=== PATIENT | male | born 1980 | race Caucasian/White ===

== ENCOUNTER 2016-08-05 10:26 | Outpatient (CLI) | payer OTHER ==
[2015-11-08 01:29] VITALS: BP 149/86
== END 2016-08-05 10:45 ==
LOC: OUT 10:26
PROVIDERS: ATTEND Colon & Rectal Surgery
DX: K60.2 Anal fissure, unspecified (principal)
CPT/HCPCS: 99213

== ENCOUNTER 2016-09-06 13:56 | Outpatient (CLI) | payer OTHER ==
[2015-11-08 01:29] VITALS: BP 149/86
--- NOTE | 2016-09-06 15:33 | Diagnostic Imaging Report ---
HELEN CONTRERAS [facility] [address] [facility].[address] [address] Report Submission Date: Sep 06, 2016 3:11:12 PM CDT Patient Study Name: NEENA BURGOS Date: Sep 06, 2016 1:55:49 PM CDT Modality Type: CR Gender: M Description: LOWER EXTREMITY : 76 Institution: [facility] Physician: HELEN CONTRERAS Examination: Plain film foot History: Injury Findings: 3 views of the foot demonstrates faint lucency involving the proximal phalanx 1st digit. No displacement Mild hallux valgus deformity. Mild soft tissue swelling. Impression: Proximal phalanx 1st digit fracture without displacement. Electronically signed on Sep 06, 2016 3:11:12 PM CDT by: Oscar MEREDITH
== END 2016-09-06 14:00 ==
LOC: RAD 13:56
PROVIDERS: ATTEND Family Medicine
DX: M79.671 Pain in right foot (principal)
CPT/HCPCS: 73630

== ENCOUNTER 2016-09-25 13:02 | Emergency (ER) | payer OTHER ==
[2016-09-25] MEDS: oxyCODONE/ACETAMINOPHEN 5/325 TABLET PO ONE (13:10)
[2016-09-25] MEDS ORDERED: KETOROLAC TROMETHAMINE 60 MG/2 ML VIAL ONE (13:28)
[2016-09-25] MEDS: KETOROLAC TROMETHAMINE 60 MG/2 ML VIAL IM ONE (13:30)
--- NOTE | 2016-09-25 13:34 | ED Physician Documentation ---
General Adult - HISTORIAN Historian: patient - HPI Stated Complaint: fall, R wrist injury Chief Complaint: General Adult Onset: minutes Timing: still present Severity: moderate Further Comments: yes (Pt is a 36 yo male who fell while playing ball and landed on his R wrist. Pt appears in significant discomfort on presentation. Pt states that his wrist was deformed and that he pulled on it and straightened it immediately after the incident.) - ROS CONST: no problems EYES/ENT: none CVS/RESP: none GI/: none MS/SKIN/LYMPH: other (R wrist injury) - PAST HX Past History: other (ortho surgery) Allergies/Adverse Reactions: Allergies Allergy/AdvReac Type Severity Reaction Status Date / Time No Known Allergies Allergy Verified 02/10/16 11:24 Home Medications: Ambulatory Orders Medication Instructions Recorded NK [NK] 09/25/16 - SOCIAL HX Smoking History: non-smoker - FAMILY HX Family History: No - VITAL SIGNS Vital Signs: Vital Signs Temp Pulse Resp BP Pulse Ox 149/86 11/08/15 01:27 - REVIEWED ASSESSMENTS Nursing Assessment Reviewed: Yes Vitals Reviewed: Yes Progress - Progress Progress: X-ray R wrist: A comminuted intra-articular distal right radius fracture is present with 8 dorsal inclination in the radiocarpal joint. A minimally distracted ulnar styloid fracture is present. Internal fixation hardware is present in the 4th proximal phalangeal base. Short 4th and 5th metacarpals are observed. Percocet (5/325) 2 tabs po in ER. Toradol 60 mg IM in ER d/w Dr. Belle, [facility]. ortho. Ortho clinic will contact pt on Tuesday. Clinic tel. is [phone]. Sugartong splint Rx Percocet (5/325) 1-2 po q 4-6 h prn #20. ED Results Lab/Radiology - Orders Orders: ED Orders Category Date Time Status WRIST 3 VIEWS OR MORE [RAD] Stat Exams 09/25/16 Ordered Ketorolac Tromethamine [Toradol] Med 09/25/16 13:28 Discontinued 60 mg .ROUTE .STK-MED ONE Ketorolac Tromethamine [Toradol] Med 09/25/16 13:28 Discontinued 60 mg IM NOW ONE oxyCODONE HCL/ACETAMINOPHEN [Percocet 5-325 mg Tablet] Med 09/25/16 13:05 Discontinued 2 each PO NOW ONE General Adult Physical Exam - PHYSICAL EXAM GENERAL APPEARANCE: moderate distress NECK: normal inspection, supple RESPIRATORY: no resp distress, chest non-tender, breath sounds normal CVS: reg rate & rhythm, heart sounds normal BACK: normal inspection SKIN: warm/dry, normal color EXTREMITIES: other (R wrist tenderness/swelling; inhibited movement) NEURO: oriented X3, motor nml, sensation nml Discharge Clincal Impression: Right wrist fracture Qualifiers: Encounter type: initial encounter Fracture type: closed Qualified Code(s): S62.101A - Fracture of unspecified carpal bone, right wrist, initial encounter for closed fracture Referrals: Arturo Saleh MD [Primary Care Provider] - Home Medications: Ambulatory Orders NK [NK] 09/25/16 Condition: Stable Disposition: 01 HOME, SELF-CARE Decision to Admit: NO Decision Time: 14:11
[2016-09-25 14:35] VITALS: BP 148/68
--- NOTE | 2016-09-25 18:29 | Diagnostic Imaging Report ---
JT HOFFMAN~ [facility] [address] [facility] [address] [place] [address]. [id number] ~ ~ ~ ~ Report Submission Date: Sep 25, 2016 1:35:44 PM CDT Patient ~ Study Name: NEENA BURGOS ~ Date: Sep 25, 2016 1:12:03 PM CDT ~ Modality Type: CR Gender: M ~ Description: UPPER EXTREMITY : 76 ~ Institution: [facility] Physician: JT HOFFMAN ~ ~ ~ ~ Right wrist 3 views History: Pain after fall Findings: A comminuted intra-articular distal right radius fracture is present with 8 dorsal inclination in the radiocarpal joint. A minimally distracted ulnar styloid fracture is present. Internal fixation hardware is present in the 4th proximal phalangeal base. Short 4th and 5th metacarpals are observed. Impression: Distal radius and ulna fractures. ~ Electronically signed on Sep 25, 2016 1:35:44 PM CDT by: Baldemar MEREDITH
== END 2016-09-25 14:30 | disposition home or self-care (01) ==
LOC: ED 13:02
DX: S62.101A Fracture of unspecified carpal bone, right wrist, initial encounter for closed fracture (principal); W19.XXXA Unspecified fall, initial encounter; Y93.9 Activity, unspecified; Y99.9 Unspecified external cause status
CPT/HCPCS: 73110; A9270; J1885; 96372; 99283

== ENCOUNTER 2016-11-25 23:03 | Emergency (ER) | payer OTHER ==
[2016-11-25] MEDS ORDERED: TAMSULOSIN HCL 0.4 MG CAP.ER.24H PO ONE (23:38)
[2016-11-25] MEDS ORDERED: KETOROLAC TROMETHAMINE 30 MG/1ML VIAL IVP ONE (23:38)
[2016-11-25] MEDS ORDERED: 0.9 % SODIUM CHLORIDE 1,000 ML IV ONE (23:38)
[2016-11-25] MEDS ORDERED: DICYCLOMINE HCL 10 MG/ML VIAL IM ONE (23:38)
[2016-11-25] MEDS ORDERED: ONDANSETRON HCL/PF 4 MG/ 2ML VIAL IVP ONE (23:38)
[2016-11-25] MEDS ORDERED: PHARMACY KEY 1 EACH EACH MC ONE (23:44)
[2016-11-25] MEDS ORDERED: HYOSCYAMINE SULFATE 0.125 MG TAB.SUBL SL SCH (23:45)
[2016-11-26 00:09] LABS: BASOPHILS % 0.5 (0.0-1.5); EOSINOPHILS % 0.9 % (0.0-6.8); MEAN CORPUSCULAR HEMOGLOBIN 29.2 pg (28.0-34.0); MEAN CORPUSCULAR VOLUME 85.7 fl (80.0-100.0); MONOCYTES % 4.3 % (0.0-11.0); NEUTROPHILS # 11.9 # k/uL (1.4-7.7)
--- NOTE | 2016-11-26 00:16 | Diagnostic Imaging Report ---
ANEL MORALES [facility] [place] [facility] [address] [facility] [address] [place], [place]. [address] Report Submission Date: Nov 26, 2016 12:05:47 AM CDT Patient Study Name: NEENA BURGOS Date: Nov 25, 2016 11:49:52 PM CDT Modality Type: CT\SR Gender: M Description: CT ABD & PELVIS W/O CO : 76 Institution: [facility] Physician: ANEL MORALES CT abdomen and pelvis without contrast Date of study: November 25, 2016 CLINICAL HISTORY: RT. FLANK PAIN. HX. STONES (Hx) / STONE PROTOCOL (DICOM Hx) TECHNIQUE: 2.5 mm contiguous axial images of the abdomen and pelvis non contrast. FINDINGS: The lung bases are clear. Abdomen: The liver, pancreas and spleen are normal in appearance. The gallbladder is unremarkable. The kidneys show a right hydronephrosis and hydroureter with a 4 mm proximal right ureteral calculus. There is no bowel wall hernia containing only fat. The appendix is unremarkable.. The aorta is normal in caliber. The small bowel is nondistended. There is no evidence of free air or free fluid. Pelvis: The colon is normal in appearance. The distal ureters and bladder are normal in appearance. There is no evidence of distal ureteral or intravesicular calculi. . There is no evidence of free air or free fluid. Colonic diverticulosis present.. The remaining pelvic structures are within normal limits and the bones of the pelvis are intact. IMPRESSION: Right hydronephrosis and hydroureter secondary to a proximal 4 mm calculus in the ureter Electronically signed on Nov 26, 2016 12:05:47 AM CDT by: Brian MEREDITH
[2016-11-26 00:18] LABS: eGFR (African) > 60; eGFR (Non-African) > 60
[2016-11-26] MEDS ORDERED: HYDROmorphone HCL/PF 1 MG/ML DISP.SYRIN IVP ONE (00:29)
--- NOTE | 2016-11-26 01:27 | ED Physician Documentation ---
Abdominal Pain - HISTORIAN Historian: patient - HPI Stated Complaint: Nausea and Vomiting Chief Complaint: Abdominal Pain Additonal Information: right abdominal pain and flank pain with n/v x 2 hours, hx of kidney stones, feels like stone, urine dark Onset: hours (2) Duration: sudden-onset, persistent Timing: still present Context: denies: out of country travel, bad food, recent trauma Severity: moderate Quality: sharp Front/Back of Body, Lg (Color): 1 - pain 2 - pain Associated Symptoms: nausea, vomiting Exacerbated by: nothing Relieved by: nothing Further Comments: no - ROS CONST: no problems GI/: dark urine CVS/RESP: none EYES/ENT: none MS/SKIN/LYMPH: none NEURO/PSYCH: none - SOCIAL HX Smoking History: non-smoker Alcohol Use: occasionally Drug Use: none - FAMILY HX Family History: kidney stones - PAST HX Past History: kidney stones Ischemic Bowel Risk Factors: none Other History: none Surgeries/Procedures: none Immunizations: referred to PCP Home Medications: Ambulatory Orders Medication Instructions Recorded Gabapentin [Neurontin] 800 mg PO DAILY 11/25/16 Allergies/Adverse Reactions: Allergies Allergy/AdvReac Type Severity Reaction Status Date / Time No Known Allergies Allergy Verified 11/25/16 23:13 - VITAL SIGNS Vital Signs: Vital Signs Temp Pulse Resp BP Pulse Ox 70 16 129/78 98 11/26/16 01:40 11/26/16 01:40 11/26/16 01:40 11/26/16 01:40 - REVIEWED ASSESSMENTS Nursing Assessment Reviewed: Yes Vitals Reviewed: Yes Progress - Results/Orders Results/Orders: ua, cbc, cmp, ct abdomen/pelvis ordered - Progress Progress: pt. given 1 liter ns, 0.4 mg flomax p.o., toradol 30 mg ivp, hyoscyamine 0.25 mg p.o., zofran 8 mg ivp and dilaudid 1 mg ivp Critical Care Note - Critical Care Note Total Time (mins): 0 ED Results Lab/Radiology - Lab Results Lab Results: Lab Results 11/25/16 11/25/16 00:03 00:03 WBC 14.90 K/ul H K/ul (4.00-12.00) RBC 5.23 M/ul H M/ul (3.90-5.20) Hgb 15.3 g/dL g/dL (12.0-18.0) Hct 44.8 % % (37.0-53.0) MCV 85.7 fl fl (80.0-100.0) MCH 29.2 pg pg (28.0-34.0) MCHC 34.1 g/dL g/dL (30.0-36.0) RDW 13.3 % % (11.3-14.3) Plt Count 324 K/mm3 K/mm3 (130-400) Neut % (Auto) 79.9 % H % (39.0-79.0) Lymph % (Auto) 13.2 % L % (16.0-50.0) Emmet % (Auto) 4.3 % % (0.0-11.0) Eos % (Auto) 0.9 % % (0.0-6.8) Baso % (Auto) 0.5 (0.0-1.5) Neut # (Auto) 11.9 # k/uL H # k/uL (1.4-7.7) Lymph # (Auto) 2.0 # k/uL # k/uL (0.6-4.0) Emmet # (Auto) 0.6 # k/uL # k/uL (0.0-0.9) Eos # (Auto) 0.1 # k/uL # k/uL (0.0-0.6) Baso # (Auto) 0.1 # k/uL # k/uL (0.0-0.5) Reactive Lymphs % 1.2 % % (0.0-5.0) Reactive Lymphs # 0.2 # k/uL # k/uL (0.0-0.8) Sodium 138 mmol/L mmol/L (137-145) Potassium 3.8 mmol/L mmol/L (3.5-5.1) Chloride 104 mmol/L mmol/L (98-107) Carbon Dioxide 23 mmol/L mmol/L (22-30) BUN 18 mg/dL mg/dL (9-20) Creatinine 1.20 mg/dL mg/dL (0.66-1.25) Estimated Creat Clear 123 Est GFR ( Amer) > 60 (60 - ) Est GFR (Non-Af Amer) > 60 (60 - ) Glucose 108 mg/dL H mg/dL (74-106) Calcium 9.1 mg/dL mg/dL (8.4-10.2) Total Bilirubin 0.4 mg/dL mg/dL (0.2-1.3) AST 34 U/L U/L (15-46) ALT 50 U/L U/L (13-69) Alkaline Phosphatase 86 U/L U/L (38-126) Total Protein 7.7 g/dL g/dL (6.3-8.2) Albumin 4.5 g/dL g/dL (3.5-5.0) - Radiology Radiology Impressions: ct of abdomen/pelvis shows 4 mm stone in proximal ureter - Orders Orders: ED Orders Category Date Time Status CT ABD & PELVIS W/O CON Stat Exams 11/25/16 Completed CBC/PLATELET/DIFF Routine Lab 11/25/16 00:03 Completed CMP Routine Lab 11/25/16 00:03 Completed 0.9 % Sodium Chloride [Normal Saline] 1,000 ml Med 11/25/16 23:38 Discontinued IV Q1H Dicyclomine HCl [Bentyl] Med 11/25/16 23:38 Discontinued 20 mg IM NOW ONE HYDROmorphone HCL/PF [Dilaudid] Med 11/26/16 00:29 Discontinued 1 mg IVP NOW ONE Hyoscyamine Sulfate [Oscimin Sl] Med 11/25/16 23:45 Discontinued 0.25 mg SL 1T Ketorolac Tromethamine [Toradol] Med 11/25/16 23:38 Discontinued 30 mg IVP NOW ONE Ondansetron HCl/Pf [Zofran 4 mg/2 ml] Med 11/25/16 23:38 Discontinued 8 mg IVP NOW ONE [facility] Med 11/25/16 23:44 Discontinued 1 each MC .STK-MED ONE Tamsulosin HCl [Flomax] Med 11/25/16 23:38 Discontinued 0.4 mg PO NOW ONE Abdominal Pain Physical Exam - Physical Exam General Appearance: alert, moderate distress, anxious EENT: eye inspection normal, ENT inspection normal, pharynx normal, no signs of dehydration, CATHRYN, no nystagmus, TM's nml NECK: normal inspection, thyroid normal, supple RESPIRATORY: no resp distress, chest non-tender, breath sounds normal CVS: reg rate & rhythm, heart sounds normal, equal pulses, no murmur, no gallop , PMI nml, no JVD, no friction rub ABDOMEN: soft, no organomegaly, normal bowel sounds, tenderness (right middle quadrant and right flank) BACK: CVA tenderness (R) SKIN: warm/dry, normal color EXTREMITIES: non-tender, normal range of motion, no evidence of injury, no edema NEURO: oriented X3, CN's nml as tested, motor nml, sensation nml Vital Signs: Vital Signs Temp Pulse Resp BP Pulse Ox 70 16 129/78 98 11/26/16 01:40 11/26/16 01:40 11/26/16 01:40 11/26/16 01:40 Discharge Clincal Impression: Kidney stone Referrals: Arturo Saleh MD [Primary Care Provider] - 2 Days Comments: Discharged with scripts for Toradol 1 pill 4x/day, Flomax 1 pill daily, Percocet 1 pill 4x/day as needed for pain Condition: Stable Disposition: HOME, SELF-CARE Decision to Admit: NO Decision Time: 01:24
[2016-11-26 01:41] VITALS: BP 129/78
== END 2016-11-26 01:40 | disposition home or self-care (01) ==
LOC: ED 23:03
DX: N20.0 Calculus of kidney (principal)
CPT/HCPCS: 74176; 80053; 85025; A9270; J1170; J1885; J2405; J7030; 96361; 96374; 96375; 99283; S1016

== ENCOUNTER 2016-12-01 08:56 | Emergency (ER) | payer OTHER ==
[2016-12-01] MEDS ORDERED: KETOROLAC TROMETHAMINE 60 MG/2 ML VIAL IM ONE (09:29)
[2016-12-01] MEDS ORDERED: NALBUPHINE HCL 10 MG/1 ML IM ONE (09:29)
[2016-12-01 09:33] LABS: EOSINOPHILS % 6.7 % (0.0-6.8); MEAN CORPUSCULAR HEMOGLOBIN 28.6 pg (28.0-34.0); MONOCYTES % 5.9 % (0.0-11.0); NEUTROPHILS # 3.6 # k/uL (1.4-7.7)
[2016-12-01 09:44] LABS: eGFR (African) > 60; eGFR (Non-African) > 60
[2016-12-01 10:55] VITALS: BP 140/85
--- NOTE | 2016-12-01 12:55 | ED Physician Documentation ---
General Adult - HISTORIAN Historian: patient - HPI Stated Complaint: right flank pain Chief Complaint: General Adult Onset: days ago Timing: worse Further Comments: yes (36 year old male patient presents with right flank pain. Patient was seen in the Er on 11/25/16 with right renal calculi. Patient was discharge with 4 days Toradol, 3 days flomax and prn percocet. Patient states he is out of all medications, c/o 8-9/10 day. Denies nausea or vomiting. has been straining all urine.) - ROS CONST: recent illness (renal calculi) EYES/ENT: none CVS/RESP: none GI/: none MS/SKIN/LYMPH: none NEURO/PSYCH: denies: headache - PAST HX Past History: denies: none Allergies/Adverse Reactions: Allergies Allergy/AdvReac Type Severity Reaction Status Date / Time No Known Allergies Allergy Verified 12/01/16 09:09 Home Medications: Ambulatory Orders Medication Instructions Recorded Gabapentin [Neurontin] 800 mg PO DAILY 11/25/16 Hydrocodone/Acetaminophen [Vicodin 1 tab PO Q6 PRN 12/01/16 5-300 mg Tablet] Naproxen [Naprosyn] 250 mg PO BID 12/01/16 Tamsulosin HCl [Flomax] 0.4 mg PO [id number] #7 cap.er.24h 12/01/16 - SOCIAL HX Smoking History: cigarettes - FAMILY HX Family History: No - VITAL SIGNS Vital Signs: Vital Signs Temp Pulse Resp BP Pulse Ox 98.3 F 88 20 140/85 96 12/01/16 09:05 12/01/16 10:53 12/01/16 10:53 12/01/16 10:53 12/01/16 10:53 - REVIEWED ASSESSMENTS Nursing Assessment Reviewed: Yes Vitals Reviewed: Yes Progress - Progress Progress: Medicated for pain with toradol IM and nubain IM. Reviewed lab findings with patient, education on renal calculi recovery time and pain management. Patient verbalized understanding. Instructed to keep straining urine. Follow up with urology if pain continued >72 hours. ED Results Lab/Radiology - Lab Results Lab Results: Lab Results 12/01/16 12/01/16 09:20 09:20 WBC 7.00 K/ul K/ul (4.00-12.00) RBC 4.89 M/ul M/ul (3.90-5.20) Hgb 14.0 g/dL g/dL (12.0-18.0) Hct 41.6 % % (37.0-53.0) MCV 85.0 fl fl (80.0-100.0) MCH 28.6 pg pg (28.0-34.0) MCHC 33.6 g/dL g/dL (30.0-36.0) RDW 13.1 % % (11.3-14.3) Plt Count 264 K/mm3 K/mm3 (130-400) Neut % (Auto) 51.3 % % (39.0-79.0) Lymph % (Auto) 32.5 % % (16.0-50.0) Bertie % (Auto) 5.9 % % (0.0-11.0) Eos % (Auto) 6.7 % % (0.0-6.8) Baso % (Auto) 1.0 (0.0-1.5) Neut # (Auto) 3.6 # k/uL # k/uL (1.4-7.7) Lymph # (Auto) 2.3 # k/uL # k/uL (0.6-4.0) Bertie # (Auto) 0.4 # k/uL # k/uL (0.0-0.9) Eos # (Auto) 0.5 # k/uL # k/uL (0.0-0.6) Baso # (Auto) 0.1 # k/uL # k/uL (0.0-0.5) Reactive Lymphs % 2.6 % % (0.0-5.0) Reactive Lymphs # 0.2 # k/uL # k/uL (0.0-0.8) Sodium 137 mmol/L mmol/L (137-145) Potassium 4.0 mmol/L mmol/L (3.5-5.1) Chloride 103 mmol/L mmol/L (98-107) Carbon Dioxide 25 mmol/L mmol/L (22-30) BUN 13 mg/dL mg/dL (9-20) Creatinine 1.10 mg/dL mg/dL (0.66-1.25) Estimated Creat Clear 134 Est GFR ( Amer) > 60 (60 - ) Est GFR (Non-Af Amer) > 60 (60 - ) Glucose 99 mg/dL mg/dL (74-106) Calcium 9.0 mg/dL mg/dL (8.4-10.2) Total Bilirubin 0.4 mg/dL mg/dL (0.2-1.3) AST 24 U/L U/L (15-46) ALT 46 U/L U/L (13-69) Alkaline Phosphatase 66 U/L U/L (38-126) Total Protein 6.8 g/dL g/dL (6.3-8.2) Albumin 3.8 g/dL g/dL (3.5-5.0) - Orders Orders: ED Orders Category Date Time Status CBC/PLATELET/DIFF Stat Lab 12/01/16 09:20 Completed CMP Stat Lab 12/01/16 09:20 Completed UA W/MICRO IF INDICATED Stat Lab 12/01/16 09:10 Ordered Ketorolac Tromethamine [Toradol] Med 12/01/16 09:29 Discontinued 60 mg IM NOW ONE Nalbuphine HCl [Nubain] Med 12/01/16 09:29 Discontinued 10 mg IM NOW ONE General Adult Physical Exam - PHYSICAL EXAM GENERAL APPEARANCE: moderate distress RESPIRATORY: no resp distress, chest non-tender, breath sounds normal CVS: reg rate & rhythm, heart sounds normal, equal pulses, no murmur, no gallop , PMI nml, no JVD, no friction rub, 24 ABDOMEN: soft, no organomegaly, normal bowel sounds, no abdominal bruit, no distension BACK: CVA tenderness (R) SKIN: normal color, warm/dry, NR, INT, PAL, DR NEURO: oriented X3, CN's nml as tested, motor nml, sensation nml, mood/affect nml Discharge Clincal Impression: Kidney stone, Flank pain Prescriptions: Tamsulosin HCl [Flomax] 0.4 mg PO [id number] #7 cap.er.24h Referrals: Arturo Saleh MD [Primary Care Provider] - 2 Days Condition: Good Disposition: 01 HOME, SELF-CARE Decision to Admit: NO Decision Time: 10:45
== END 2016-12-01 10:53 | disposition home or self-care (01) ==
LOC: ED 08:56
DX: N20.0 Calculus of kidney (principal); R10.9 Unspecified abdominal pain
CPT/HCPCS: 80053; 85025; J1885; J2300; 96372; 99283

== ENCOUNTER 2017-05-18 14:09 | Outpatient (CLI) | payer OTHER ==
--- NOTE | 2017-05-19 13:55 | OP Clinic Progress Note ---
REASON FOR VISIT: This 37-year-old man is seen by himself with a history of being bothered by several years of clearing his throat. It has gotten progressively worse. He also feels like there is something in his left nostril that is significantly bothersome. By history, he snores extremely loud. He clears his throat and hacks continually at night and it seems to be a significant domestic issue. His thinks he may have some degree of apnea. He has had some increased weight gain. He has had reduced physical activity, both with fatigue and he has had 2 moderately recently broken wrists. He is around secondary smoke with his and father. The oral cavity is status post tonsillectomy. I used a flexible fiberoptic rhinolaryngoscope. He has a significant left nasal septal spur and some degree of right septal deviation. When the pediatric scope was in his left nostril, the patient said, "It is right there Doc, 'that thing' is resting right on it." Clearly the endoscope was resting on the left nasal septal spur. He does have a thickened tongue base with some degree of persistent lingual tonsils. I can see the larynx quite well. The vocal cords abduct and adduct well. There is no evident mass, tumor, or lesion. There is no granuloma on the vocal cords. There is some increased erythema in the postcricoid area and in the inter-arytenoid area. The history of having more clearing of the throat when he eats more heavily and when he lies down and when he eats chocolate to some degree. The patient describes elevating the head of the bed. I think, at least to begin with, it has a higher probability of beginning to improve him. He also takes some antacids. The patient says he is significantly bothered by his left nasal blockage. He wants to get it improved. Symptomatically, the patient identifies the left nasal septal spur deviation as being the significant problem and he would like to consider having nasal surgery in this regard and possibly of some of the sinus tissue depending. PLAN: He will get a CT of the sinuses. He will elevate the head of the bed and take some antacids. It is going to be difficult for him to lose weight but he understands that would be part of the improvement program and not eating so much late at night in addition. I will see him back in several weeks and go back over these plans. In the meantime, he will get a CT of the sinuses and nasal cavity and this will be arranged. cc: Dr. Delfino MEREDITH
== END 2017-05-18 14:10 ==
LOC: ENT 14:09
PROVIDERS: ATTEND Otolaryngology
DX: J34.89 Other specified disorders of nose and nasal sinuses (principal); R68.89 Other general symptoms and signs; K21.9 Gastro-esophageal reflux disease without esophagitis; R09.81 Nasal congestion
CPT/HCPCS: 31575; 99213

== ENCOUNTER 2017-05-24 08:35 | Outpatient (CLI) | payer OTHER ==
--- NOTE | 2017-05-24 10:07 | Diagnostic Imaging Report ---
SADIQ PARTIDA [facility] [address] [facility] [address] [address] Report Submission Date: May 24, 2017 9:11:42 AM CDT Patient Study Name: NEENA BURGOS Date: May 24, 2017 8:46:19 AM CDT Modality Type: CT\SR Gender: M Description: CT SINUS : 76 Institution: [facility] Physician: SADIQ PARTIDA Examination: CT Sinuses History: Sinus pressure. GERD (Hx) Comparison exams: None available Technique: Axial imaging with sagittal and coronal reconstruction. Findings: Mild mid ethmoidal mucous thickening, left greater than right. Maxillary, frontal and sphenoid sinuses are clear. Ostiomeatal units are patent bilaterally. Minimal septal deviation to the left. Remaining visualized osseous and soft tissue structure within normal limits. Impression: Mild mid ethmoidal mucous thickening. No air fluid level. Electronically signed on May 24, 2017 9:11:42 AM CDT by: Oscar MEREDITH
== END 2017-05-24 08:36 ==
LOC: RAD 08:35
PROVIDERS: ATTEND Otolaryngology
DX: R09.81 Nasal congestion (principal); K21.9 Gastro-esophageal reflux disease without esophagitis; R68.89 Other general symptoms and signs; J34.89 Other specified disorders of nose and nasal sinuses
CPT/HCPCS: 70486

== ENCOUNTER 2017-05-25 14:32 | Outpatient (CLI) | payer OTHER ==
--- NOTE | 2017-05-26 11:27 | OP Clinic Progress Note ---
REASON FOR VISIT: Tyler is seen in follow up of his complaints of nasal airway obstruction, much more on the left side than on the right. He continues to feel significantly bothered by this. He had a CT of his sinuses. Most of the sinuses appeared really fairly clear. He does have a very marked left nasal septal deviation with a large bony spur which was identified on his physical examination at his last visit. He also has some degree of inferior turbinate hypertrophy. PLAN: I have shown the patient his CT and gone over it with him. I went over risks, problems, complications, options, and alternatives, no guarantee of improvement and multiple other issues. The patient previously and then again today states that he understands and chooses and requests to go ahead with the procedure. Arrangements will be made in that regard. cc: Dr. Arturo MEREDITH
== END 2017-05-25 14:33 ==
LOC: ENT 14:32
PROVIDERS: ATTEND Otolaryngology
DX: J34.2 Deviated nasal septum (principal); J34.89 Other specified disorders of nose and nasal sinuses; J34.3 Hypertrophy of nasal turbinates
CPT/HCPCS: 99213

== ENCOUNTER 2017-07-20 15:42 | Outpatient (CLI) | payer OTHER ==
--- NOTE | 2017-07-21 09:52 | OP Clinic Progress Note ---
REASON FOR VISIT: This 37-year-old man is seen 2 days after his sinonasal surgery. He pulled the trumpets out of his nose the night of surgery and then removed some nasal finger cots out of his nose last night. Under the microscope, I debrided and cleaned using hydrogen peroxide and a Q- Tip on both sides. He is already getting a little bit of air, little bit more on the right side than his left. He had zero complaints of pain. There was no significant bleeding. The appearance of his nose is quite tolerable to the patient. He feels like he is overall doing pretty well. PLAN: I will see him back in about 2 days and re-clean his nose again under a microscope. cc: Dr. Arturo MEREDITH
== END 2017-07-20 15:43 ==
LOC: ENT 15:42
PROVIDERS: ATTEND Otolaryngology
DX: J32.9 Chronic sinusitis, unspecified (principal); Z09 Encounter for follow-up examination after completed treatment for conditions other than malignant neoplasm
CPT/HCPCS: 99213

== ENCOUNTER 2017-07-27 15:30 | Outpatient (CLI) | payer OTHER ==
--- NOTE | 2017-07-28 10:20 | OP Clinic Progress Note ---
REASON FOR VISIT: Mr. qIbal is seen in follow up of rhino nasal surgery. He had some initial discomfort but that has resolved. Patient feels that he has put many types of pain medication on the shelf and no longer takes any. He has used saline and some hydrogen peroxide nasal irrigations. He feels like both nostrils are healing and breathing much better. Still the right side may be a little more favored than the left, but his overall nasal airway is much improved. He has no complaints. He likes the appearance of his nose. He notes that there is no significant septal deviations. The turbinate reduction appears to be healing well. There are no scabs. There is no septal perforation. PLAN: I cleaned it with a Q-Tip and some Neosporin ointment along with suction and irrigation and Q-tip cleaning today. Patient feels comfortable, happy, and pleased and he so states. I will use irrigations on a p.r.n. basis going forward, and I will see him back also on a p.r.n. basis. cc: Dr. Arturo MEREDITH
== END 2017-07-27 15:32 ==
LOC: ENT 15:30
PROVIDERS: ATTEND Otolaryngology
DX: Z48.89 Encounter for other specified surgical aftercare (principal); J34.89 Other specified disorders of nose and nasal sinuses
CPT/HCPCS: 99213